=== PATIENT | male | born 1980 | race Caucasian/White ===

== ENCOUNTER 2017-09-09 17:22 | Emergency (ER) | payer OTHER, BC ==
--- NOTE | 2017-09-09 17:46 | EDM.PDOC ---
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 Since his had significant pain with weightbearing History of ACL repair on the left No fever nausea vomiting chills sweats no chest pain shortness breath headache dizziness palpitation about a urine symptoms ] Review of systems: As per history of present illness and below otherwise all systems reviewed and negative. Past medical history: As per history of present illness and as reviewed below otherwise noncontributory. Surgical history: As per history of present illness and as reviewed below otherwise noncontributory. Social history: No reported history of drug or alcohol abuse. Family history: As per history of present illness and as reviewed below otherwise noncontributory. Physical exam: HEENT: Atraumatic, normocephalic, pupils reactive, negative for conjunctival pallor or scleral icterus, mucous membranes moist, throat clear, neck supple, nontender, trachea midline. Lungs: Clear to auscultation, breath sounds equal bilaterally, chest nontender. Heart: S1S2, regular, negative for clicks, rubs, or JVD. Abdomen: Soft, nondistended, nontender. Negative for masses or hepatosplenomegaly. Negative for costovertebral tenderness. Pelvis: Stable nontender. Genitourinary: Deferred. Rectal: Deferred. Extremities: Atraumatic, negative for cords or calf pain. Neurovascular unremarkable. Neuro: Awake, alert, oriented. Cranial nerves II through XII unremarkable. Cerebellum unremarkable. Motor and sensory unremarkable throughout. Exam nonfocal. Right lower extremity hip and ankle appear unaffected ,very limited knee exam due to pain however there is a slight laxity to anterior drawer, this is slightly more than left to the left however there is an ACL repair on the left from previous, again very limited due to pain Entire limb is neurovascularly intact Diagnostics: []Right knee 3 views Therapeutics: [Immobilizer crutches nonweightbearing Rest ice ibuprofen Follow-up with sore throat 2 weeks sooner as needed ] Impression: []Right knee pain Possible ACL injury Definitive disposition and diagnosis as appropriate pending reevaluation and review of above. Right Knee Pain Score (Numeric/FACES): 7 - Related Data Allergies Allergy/AdvReac Type Severity Reaction Status Date / Time No Known Allergies Allergy Verified 09/09/17 17:50 Home Meds: Home Meds . [No Known Home Meds] 09/09/17 [History] Review of Systems - Review of Systems Review Of Systems: ROS reveals no pertinent complaints other than HPI. ED EXAM, GENERAL - Physical Exam Exam: See Below Course - Vital Signs Last Recorded V/S: Last Vital Signs Temp 97.9 F 09/09/17 17:50 Pulse 86 09/09/17 17:50 Resp 16 09/09/17 17:50 BP 140/88 09/09/17 17:50 Pulse Ox 96 09/09/17 17:50 - Orders/Labs/Meds Orders: Active Orders 24 hr Category Date Time Status Knee 3V Rt [CR] Stat Exams 09/09/17 17:46 Taken Departure - Departure Time of Disposition: 18:20 Disposition: Home, Self-Care 01 Condition: Good Clinical Impression: Right knee pain - Discharge Information Referrals: PCP,None [Primary Care Provider] - Forms: ED Department Discharge Additional Instructions: Immobilizer crutches nonweightbearing Rest Ice 20 minute intervals 3 times daily Ibuprofen 400-800 mg 3 times daily 7-10 days Call number below to schedule appointment and appropriate follow-up with orthopedist her facility [facility] [address], [address] [place] [address] my orthopedic The following information is given to patients seen in the emergency department who are being discharged to home. This information is to outline your options for follow-up care. We provide all patients seen in our emergency department with a follow-up referral. The need for follow-up, as well as the timing and circumstances, are variable depending upon the specifics of your emergency department visit. If you don't have a primary care physician on staff, we will provide you with a referral. We always advise you to contact your personal physician following an emergency department visit to inform them of the circumstance of the visit and for follow-up with them and/or the need for any referrals to a consulting specialist. The emergency department will also refer you to a specialist when appropriate. This referral assures that you have the opportunity for follow-up care with a specialist. All of these measure are taken in an effort to provide you with optimal care, which includes your follow-up. Under all circumstances we always encourage you to contact your private physician who remains a resource for coordinating your care. When calling for follow-up care, please make the office aware that this follow-up is from your recent emergency room visit. If for any reason you are refused follow-up, please contact the [facility] emergency department at and asked to speak to the emergency department charge nurse. - My Orders Last 24 Hours: My Active Orders 09/09/17 17:46 Knee 3V Rt [CR] Stat - Assessment/Plan Last 24 Hours: My Active Orders 09/09/17 17:46 Knee 3V Rt [CR] Stat
--- NOTE | 2017-09-10 17:07 | CR ---
EXAM DATE: 09/09/17 PATIENT'S AGE: 36 Patient: PETER HAMEED Facility: [place], [place] Site . Site : [id number] Study: XRay Knee Right [id number]/[id number] 6:04:37 PM Ordering Physician: Chrissy Bucio Final Report: INDICATION: Pain. Technique: Three views right knee. Findings: No acute fracture or dislocation in right knee. Mild soft tissue swelling right knee anteriorly. Right knee otherwise negative. Dictated by Oneil Shay MD @ Sep 09 2017 6:46PM (Electronic Signature) Report Signed by Proxy. BINH
== END 2017-09-09 18:25 | disposition home or self-care (01) ==
LOC: MW.ED 17:22
DX: M25.561 Pain in right knee (principal)
CPT/HCPCS: 73562-26-RT; 73562-RT; 99283